=== PATIENT | female | born 1990 | race Caucasian/White ===

== ENCOUNTER 2023-12-08 09:18 | Day surgery (SDC) | payer OTHER ==
[~2023-12-08] VITALS: Ht 162.6 cm; Wt 93.5 kg
[~2023-12-08 09:18] MED LIST: LR 1,000 ML IV SCH; Ondansetron 4 MG/2 ML VIAL IV PRN
--- NOTE | 2023-12-08 11:04 | NUR ---
Pt arrived with , escorted to [facility], states bowel movements are WNL for the procedure; VSS and WNL, RR regular and unlabored; reviewed and signed consents x2, urine HCG negative; reviewed history/meds/pharm/allergies. IV to RAC 20G and LR hanging, to await procedure.
[2023-12-08 11:08] VITALS: BP 139/93; PULSE 109; TEMP 98.6
[2023-12-08] MEDS ORDERED: Lidocaine PF 2% (20 MG/ML) 5 ML VIAL ONE ×2 (11:51)
[2023-12-08] MEDS ORDERED: Ondansetron 4 MG/2 ML VIAL ONE (11:51)
[2023-12-08 12:30] VITALS: BP 130/94; PULSE 100; TEMP 97.9
[2023-12-08 12:45] VITALS: BP 119/85; PULSE 83
[2023-12-08 13:00] VITALS: BP 125/84; PULSE 84
--- NOTE | 2023-12-08 13:18 | NUR ---
1230- PATIENT RETURNS TO [facility] [place] [facility] VIA CART. PT AWAKE AND ALERT. RESPIRATIONS UNLABORED. AMBULATED TO RECLINER CHAIR WITH 2:1 SBA. PT DENIES NAUSEA OR ABDOMINAL PAIN. HOOKED UP TO MONITOR AND VS OBTAINED. CALL LIGHT AT SIDE AND PRESENT. 1238- PATIENT TOLERATING PEPSI AND MUFFIN WITHOUT NAUSEA OR DIFFICULTY SWALLOWING. 1243- DR. BARKER IN ROOM SPEAKING WITH PATIENT. 1308- D/C INSTRUCTIONS REVIEWED WITH PATIENT. PT VERBALIZED UNDERSTANDING AND A COPY OF INSTRUCTIONS PROVIDED IN D/C FOLDER. 1311- PATIENT DRESSES SELF. 1318- PATIENT DISCHARGED FROM UNIT VIA W/C TO A PERSONAL VEHICLE. PT LEFT HOSPITAL IN STABLE CONDITION.
== END 2023-12-08 13:18 | disposition home or self-care (01) ==
LOC: SDCO 09:18
DX: K21.00 Gastro-esophageal reflux disease with esophagitis, without bleeding (principal); K59.00 Constipation, unspecified; R19.7 Diarrhea, unspecified
CPT/HCPCS: J2405; J2704; J7120